=== PATIENT | female | born 1930 | race Asian ===

== ENCOUNTER 2016-10-14 12:59 | Emergency (ER) | payer OTHER, BC ==
[~2016-10-14] VITALS: Ht 165.1 cm; Wt 68.0 kg
--- NOTE | ~2016-10-14 | EKG ---
[address] [address] ELECTROCARDIOGRAM REPORT Name: GABRIEL CHACON Room #: DEP Neil#: [id number] Admission: 10/14/16 Attend Phys: Discharge: 10/14/16 Date of : 34 Report #: [id number] THIS REPORT FOR: //name// [facility] ED Test Date: 2016-10-14 Test Time: 14:00:42 Pat Name: GABRIEL CHACON Department: Room: Gender: F Assembly Supervisor: Kortney BARLOW : 1930 Requested By: Robert Hale Order Number: [id number] MD: Ralf Luis Measurements Intervals [place] Rate: 109 P: 70 NC: 138 QRS: 60 QRSD: 70 T: 66 QT: 319 QTc: 430 Interpretive Statements Sinus tachycardia Left ventricular hypertrophy No previous ECG available for comparison Electronically Signed On 10-15-2016 9:24:23 SPORTS CLERK by Ralf Luis [email or web address] <ELECTRONICALLY SIGNED> By: Ralf Luis MD, [facility] 10/15/16 0924 1400 [facility] Ralf Luis MD, FACC /EPI
[~2016-10-14 12:59] MED LIST: ENOXAPARIN40 MG/0.1 SUBQ; TYLENOL325 MG PO; [UNRECOGNIZED DRUG - OTHER] PO
[2016-10-14 13:56] LABS: HEMATOCRIT 34.7 % (37.0-47.0); HEMOGLOBIN 11.6 gm/dL (12.0-15.0); MCH 30.3 pg (26.0-34.0); MCHC 33.3 % (28.0-37.0); MCV 90.9 fL (80.0-100.0); PLATELET COUNT 392 thou/uL (150-400); RBC 3.82 mil/uL (4.20-5.00); RDW 12.9 % (10.5-14.5); WBC 9.3 thou/uL (4.0-11.0)
[2016-10-14 13:57] LABS: MANUAL DIFF YES
[2016-10-14 14:08] LABS: ANION GAP 10 mmol/L (7-16); BUN 17 mg/dL (7-18); CALCIUM 9.4 mg/dL (8.5-10.1); CHLORIDE 95 mmol/L (98-107); CO2 27 mmol/L (21-32); CREATININE 0.7 mg/dL (0.6-1.3); GLUCOSE 146 mg/dL (70-99); POTASSIUM 4.5 mmol/L (3.5-5.1); SODIUM 132 mmol/L (136-145)
[2016-10-14] MEDS ORDERED: RALOXIFENE HCL60 MG PO (14:09)
[2016-10-14] MEDS ORDERED: LIDODERM 5%1 PATC1 TRANSDERM (14:10)
[2016-10-14] MEDS ORDERED: TRAMADOL 50 MG50 MG PO (14:10)
[2016-10-14 14:11] LABS: APTT 25.8 Seconds (24.5-32.8); PROTIME 10.4 Seconds (9.3-11.4)
[2016-10-14] MEDS ORDERED: NAMENDA 10 MG T10 MG PO (14:11)
[2016-10-14] MEDS ORDERED: LIPITOR 20 MG T20 M1 PO (14:11)
[2016-10-14 14:19] LABS: ABSOLUTE NEUTROPHILS 8.6 thou/uL (1.4-8.2); ANISOCYTOSIS SLIGHT; TOTAL CELL COUNT 100
[2016-10-14 14:22] LABS: ALBUMIN 2.9 g/dL (3.4-5.0); ALKALINE PHOSPHATASE 131 U/L (46-116); MAGNESIUM 2.1 mg/dL (1.8-2.4); NT-PRO BRAIN NAT PEPTIDE 1063 pg/mL (<300); SGOT 40 U/L (15-37); SGPT 20 U/L (30-65); TOTAL BILIRUBIN 0.6 mg/dL (<0.1-1.0); TOTAL PROTEIN 8.1 g/dL (6.4-8.2); TROPONIN-I < 0.04 ng/mL (<0.04-0.07)
[2016-10-14] MEDS ORDERED: OSELB75 PO (16:41)
[2016-10-14] MEDS ORDERED: ZOFRAN ODT4 MG DISSOLVE (16:42)
== END 2016-10-14 17:12 | disposition home or self-care (01) ==
LOC: ER 12:59
PROVIDERS: Emergency Medicine
DX: J11.1 Influenza due to unidentified influenza virus with other respiratory manifestations (principal); R11.2 Nausea with vomiting, unspecified; F03.90 Unspecified dementia, unspecified severity, without behavioral disturbance, psychotic disturbance, mood disturbance, and anxiety; F20.9 Schizophrenia, unspecified